=== PATIENT | female | born 1970 | race Caucasian/White ===

== ENCOUNTER 2024-07-22 10:20 | Inpatient (IN) | payer OTHER ==
[2024-07-22] VITALS (8 sets, daily range): BP systolic 128–173; BP diastolic 77–98
[~2024-07-22] VITALS: Ht 167.6 cm; Wt 54.0 kg
[2024-07-22] MEDS ORDERED: Labetalol Hydrochloride 20 MG/4 ML SYR IV ONE (10:30)
[2024-07-22 10:40] LABS: BASO # 0.1 10*3/uL (0.0-0.1); BASO % 1.3 % (0.0-1.0); EOS # 0.2 10*3/uL (0.0-0.4); EOS % 2.7 % (1.0-4.0); HEMATOCRIT 44.1 % (37.0-47.0); MEAN CELL VOLUME 89.8 fl (81.0-99.0); MEAN CORPUSCULAR HGB 28.7 pg (27.0-31.0); MEAN PLATELET VOLUME 12.5 fl (9.6-12.3); MONO # 0.5 10*3/uL (0.1-1.0); MONO % 8.6 % (3.0-9.0); PLATELET COUNT AUTOMATED 227 10*3/uL (130-400); RED BLOOD COUNT 4.91 10*6/uL (4.10-5.10); RED CELL DISTRI WIDTH 15.2 % (0-14.5); WHITE BLOOD COUNT 6.3 10*3/uL (4.8-10.8)
[2024-07-22] MEDS ORDERED: IOHEXOL 350 MG/ML 100 ML VIAL IV ONE (10:55)
[2024-07-22] MEDS ORDERED: SODIUM CHLORIDE 0.9% 100 ML BAG IV ONE (10:55)
[2024-07-22 11:04] LABS: ALKALINE PHOSPHATASE 92 U/L (46-116); BUN 12 mg/dl (9-23); CHLORIDE 110 mmol/L (98-107); LIPASE 46 U/L (12-53); SGPT/ALT 40 U/L (5-49); TOTAL PROTEIN 7.8 gm/dL (6.0-8.0)
[2024-07-22 11:06] LABS: CPK 72 U/L (34-171); FREE T4 1.06 ng/dl (0.89-1.76)
[2024-07-22 11:11] LABS: BILIRUBIN Negative (Negative); BLOOD Negative (Negative); CLARITY Clear (Clear); COLOR Yellow (Yellow); GLUCOSE Negative (Negative); KETONE Negative (Negative); LEUKO ESTERASE 1+ (Negative); NITRITE Negative (Negative); PH 6.5 (4.5-8.0); SPECIFIC GRAVITY <= 1.005 (1.001-1.030); UROBILINOGEN 0.2 E.U./dl (0.0-1.0)
[2024-07-22 11:11] LABS: ETHYL ALCOHOL < 3.0 mg/dl (<3)
[2024-07-22 11:18] LABS: URINE AMPHETAMINES Negative (1000ng/ml); URINE BARBITURATES Negative (200ng/ml); URINE BENZODIAZEPINES Negative (200ng/ml); URINE CANNABINOIDS (THC) Negative (50ng/ml); URINE COCAINE Negative (300ng/ml); URINE METHADONE Negative (300ng/ml); URINE OPIATES Negative (300ng/ml); URINE PHENCYCLIDINE Negative (25ng/ml)
[2024-07-22] MEDS ORDERED: Metoprolol Tartrate 5 MG/5 ML VIAL IV ONE ×2 (11:20→11:25)
[2024-07-22] MEDS ORDERED: Dextrose/Nitroglycerin 250 ML IV SCH (11:25)
[2024-07-22] MEDS ORDERED: ACETAMINOPHEN 325 MG TAB PO ONE ×2 (11:25→12:20)
[2024-07-22 11:27] LABS: BACTERIA 1+; WBC 16-20 wbc/hpf (0-5)
[2024-07-22] MEDS ORDERED: HEPARIN SODIUM 5,000 UNIT/ML VIAL IV ONE (11:45)
[2024-07-22] MEDS ORDERED: HEPARIN SODIUM 5,000 UNIT/ML VIAL IV SCH (11:50)
[2024-07-22] MEDS ORDERED: Nicotine 21 MG PATCH T SCH (12:20)
[2024-07-22] MEDS ORDERED: HEPARIN SODIUM 250 ML IV SCH (12:35)
[2024-07-22] MEDS ORDERED: Ondansetron Hydrochloride 4 MG/2 ML VIAL IV PRN (12:45)
[2024-07-22] MEDS ORDERED: ACETAMINOPHEN 325 MG TAB PO PRN (12:45)
[2024-07-22] MEDS ORDERED: ACETAMINOPHEN 650 MG SUPP R PRN (12:45)
[2024-07-22] MEDS ORDERED: Ketorolac Tromethamine 30 MG/ML VIAL IV ONE (15:05)
[2024-07-22] MEDS ORDERED: SUMATRIPTAN SUCCINATE 50 MG TAB PO ONE (15:05)
[2024-07-22] MEDS ORDERED: diphenhydrAMINE hydrochloride 50 MG/ML VIAL IV ONE (15:05)
[2024-07-22] MEDS ORDERED: Metoclopramide Hydrochloride 10 MG/2 ML VIAL IV ONE (15:10)
[2024-07-22] MEDS ORDERED: MORPHINE Sulfate 2 MG/ML SYR IV ONE (15:15)
[2024-07-22] MEDS ORDERED: ASPIRIN ENTERIC COATED 81 MG TAB PO ONE (15:20)
[2024-07-22] MEDS ORDERED: METOPROLOL SUCCINATE XR 25 MG TAB PO ONE (15:20)
[2024-07-22] MEDS ORDERED: amLODIPine besylate 5 MG TAB PO SCH (15:45)
[2024-07-22 16:21] LABS: CHOLESTEROL 189 mg/dL (<200); LDL CHOLESTEROL 116 mg/dL (9-159); TRIGLYCERIDES 82 mg/dl (<150)
[2024-07-22] MEDS ORDERED: MORPHINE Sulfate 2 MG/ML SYR IV PRN (17:45)
[2024-07-23] MEDS ORDERED: Pantoprazole Sodium 40 MG VIAL IV SCH (06:00)
[2024-07-23] MEDS ORDERED: ATORVASTATIN CALCIUM 40 MG TABLET PO SCH (10:00)
[2024-07-23] MEDS ORDERED: ASPIRIN ENTERIC COATED 81 MG TAB PO SCH (10:00)
[2024-07-23] MEDS ORDERED: METOPROLOL SUCCINATE XR 50 MG TAB PO SCH (10:00)
== END 2024-07-22 22:50 | disposition short-term general hospital (02) | DRG 190 ==
LOC: ED 10:20 → ICCU 11:32 → EDHOLD 11:32 → ICCU 13:03
PROVIDERS: Emergency Medicine; Internal Medicine Cardiovascular Disease; ADMIT Family Medicine; ATTEND Family Medicine
DX: I21.4 Non-ST elevation (NSTEMI) myocardial infarction (principal); I47.10 Supraventricular tachycardia, unspecified; I20.0 Unstable angina; I10 Essential (primary) hypertension; F17.219 Nicotine dependence, cigarettes, with unspecified nicotine-induced disorders; R73.9 Hyperglycemia, unspecified; R82.71 Bacteriuria; J43.9 Emphysema, unspecified; I77.810 Thoracic aortic ectasia; R91.1 Solitary pulmonary nodule; G40.909 Epilepsy, unspecified, not intractable, without status epilepticus; Z88.0 Allergy status to penicillin; Z88.2 Allergy status to sulfonamides; Z88.8 Allergy status to other drugs, medicaments and biological substances; Z88.9 Allergy status to unspecified drugs, medicaments and biological substances; Z82.49 Family history of ischemic heart disease and other diseases of the circulatory system; Z83.3 Family history of diabetes mellitus; Z71.6 Tobacco abuse counseling; Z68.1 Body mass index [BMI] 19.9 or less, adult